=== PATIENT | female | born 1940 | race Caucasian/White ===

== ENCOUNTER 2018-12-22 14:38 | Emergency (ER) | payer MEDICARE ==
[2018-12-22 14:53] VITALS: BP 111/55
--- NOTE | 2018-12-22 15:12 | UC ---
Skin Complaint HPI - HPI Summary HPI Summary: abscess on left side of mid back is pain ful has been there and getting worse for 3 weeks--- no streaking or fever - History of Current Complaint Chief Complaint: UCSkin Time Seen by Provider: 12/22/18 15:05 Stated Complaint: SKIN COMPLAINT Hx Obtained From: Patient ?: No Onset/Duration: Gradual Onset, Lasting Weeks - 3 Timing: Constant Pain Intensity: 2 Pain Scale Used: 0-10 Numeric Location: Discrete Character: Redness, Raised, Painful Aggravating Factor(s): Nothing Alleviating Factor(s): Nothing Associated Signs & Symptoms: Positive: Tenderness - Allergy/Home Medications Allergies/Adverse Reactions: Allergies Allergy/AdvReac Type Severity Reaction Status Date / Time oxycodone Allergy Itching Verified 12/22/18 14:56 Calcium Channel Blocking AdvReac Severe seizure Verified 12/22/18 14:56 Agent Dilt lobster/shrimp Allergy Itching Uncoded 12/22/18 14:56 Home Medications: Home Medications Atenolol TAB* [Tenormin TAB* 25 MG] 25 mg PO DAILY 12/22/18 [History Confirmed 12/22/18] Cholecalciferol TAB* [Vitamin D TAB*] 500 unit PO DAILY 12/22/18 [History Confirmed 12/22/18] Cyanocobalamin TAB* [Vitamin B12 TAB*] 3,000 mcg PO DAILY 12/22/18 [History Confirmed 12/22/18] Iron 65 mg PO DAILY 12/22/18 [History Confirmed 12/22/18] Magnesium Oxide [Magnesium] 400 mg PO DAILY 12/22/18 [History Confirmed 12/22/18 ] Potassium Gluconate [Potassium] 500 mg PO DAILY 12/22/18 [History Confirmed ] Sertraline* [Zoloft*] 50 mg PO DAILY 12/22/18 [History Confirmed 12/22/18] Spironolactone TAB* [Aldactone TAB 25 MG*] 25 mg PO DAILY 12/22/18 [History Confirmed 12/22/18] Torsemide TAB* [Demadex 20 MG*] 10 mg PO DAILY 12/22/18 [History Confirmed 12/22] Zinc Acetate [Galzin] 25 mg PO DAILY 12/22/18 [History Confirmed 12/22/18] PMH/Surg Hx/FS Hx/Imm Hx Previously Healthy: No Cardiovascular History: Cardiac Disease, Hypertension, Atrial Fibrillation Psychological History: Depression - Surgical History Surgical History: Yes Surgery Procedure, Year, and Place: pacemaker. cardiac ablations. triple bypass & aortic valve replacement. tonsillectomy. appendectomy. right ankle - fusion - Family History Known Family History: Positive: None - Social History Occupation: Retired Lives: With Family Alcohol Use: Weekly Substance Use Type: None Smoking Status (MU): Former Smoker When Did the Patient Quit Smoking/Using Tobacco: 50 years ago Review of Systems All Other Systems Reviewed And Are Negative: Yes Constitutional: Positive: Negative Skin: Positive: Other - abscess left side of mid back about 1 inch diameter- Eyes: Positive: Negative ENT: Positive: Negative Respiratory: Positive: Negative Cardiovascular: Positive: Negative Gastrointestinal: Positive: Negative Genitourinary: Positive: Negative Motor: Positive: Negative Neurovascular: Positive: Negative Musculoskeletal: Positive: Negative Neurological: Positive: Negative Psychological: Positive: Negative Is Patient Immunocompromised?: No Physical Exam Triage Information Reviewed: Yes Appearance: Well-Appearing, No Pain Distress, Well-Nourished Vital Signs: Initial Vital Signs Temp 98.5 F 12/22/18 14:47 Pulse 59 12/22/18 14:47 Resp 16 12/22/18 14:47 BP 111/55 12/22/18 14:47 Pulse Ox 96 12/22/18 14:47 Vital Signs Reviewed: Yes Eye Exam: Normal Eyes: Positive: Conjunctiva Clear ENT Exam: Normal ENT: Positive: Normal ENT inspection, Hearing grossly normal. Negative: Trismus , Muffled voice, Hoarse voice Dental Exam: Normal Neck exam: Normal Neck: Positive: Supple, Nontender, No Lymphadenopathy Respiratory Exam: Normal Respiratory: Positive: Chest non-tender, No respiratory distress, No accessory muscle use Cardiovascular Exam: Normal Cardiovascular: Positive: RRR, Pulses Normal, Brisk Capillary Refill Musculoskeletal Exam: Normal Musculoskeletal: Positive: Strength Intact, ROM Intact, No Edema Neurological Exam: Normal Neurological: Positive: Alert, Muscle Tone Normal Psychological Exam: Normal Skin: Positive: Other - soft 1 inch diameterleft side of mid back no drainage Course/Dx - Course Course Of Treatment: patient given specific instructions to follow with pcp within the next 3 days to have INr and K followed--(patient reports her INR has been stable and gets labs checked 1 time a month) bactrim warm compresses-- - Diagnoses Provider Diagnosis: Abscess of back, except buttock, On warfarin therapy Discharge ED - Sign-Out/Discharge Documenting (check all that apply): Patient Departure All imaging exams completed and their final reports reviewed: No Studies - Discharge Plan Condition: Stable Disposition: HOME Prescriptions: Sulfamethox/Trimethoprim DS* [Bactrim DS 800/160 TAB*] 1 tab PO BID #14 tab Patient Education Materials: Abscess (ED), Warm Compress or Soak (ED) Referrals: Blanka Corral MD [Primary Care Provider] - 3 Days (evaluation of INR) - Billing Disposition and Condition Condition: STABLE Disposition: Home
== END 2018-12-22 15:24 | disposition home or self-care (01) ==
LOC: UCEAST 14:38
DX: L02.212 Cutaneous abscess of back [any part, except buttock and flank] (principal); I10 Essential (primary) hypertension; F32.9 Major depressive disorder, single episode, unspecified; Z88.8 Allergy status to other drugs, medicaments and biological substances; Z88.5 Allergy status to narcotic agent; Z91.013 Allergy to seafood; Z79.899 Other long term (current) drug therapy; Z87.891 Personal history of nicotine dependence; Z95.0 Presence of cardiac pacemaker; Z95.828 Presence of other vascular implants and grafts; Z79.01 Long term (current) use of anticoagulants
CPT/HCPCS: 99212; G0463

== ENCOUNTER 2022-01-31 00:08 | Inpatient (IN) ==
[2022-01-31 02:33] LABS: INR 1.57 (0.89-1.11)
[2022-01-31 02:35] LABS: ABS Lymphocytes 0.5 10^3/ul (1.0-4.8); ABS Monocytes 0.6 10^3/ul (0-0.8); ABS Neutrophils 4.2 10^3/ul (1.5-7.7); Eosinophil % 0.1 %; Hematocrit 37 % (35-47); Lymphocyte % 10.3 %; Mean Corpuscular HGB Conc 32 g/dL (31-36); Mean Corpuscular Hemoglobin 32 pg (27-31); Mean Corpuscular Volume 98 fL (80-97); Mean Platelet Volume 8.8 fL (7.4-10.4); Nucleated Red Blood Cells % 0.1; Platelet Count 130 10^3/uL (150-450); Red Blood Count 3.81 10^6 /uL (3.70-4.87); Red Cell Distribution Width 17 % (10-15); White Blood Count 5.3 10^3/uL (3.5-10.8)
[2022-01-31 03:19] LABS: Albumin 3.9 g/dL (3.2-5.2); Albumin/Globulin Ratio 1.3 (1-3); Calcium 9.1 mg/dL (8.6-10.3); Globulin 3.1 g/dL (2-4); Magnesium 2.2 mg/dL (1.9-2.7); Potassium 2.8 mmol/L (3.5-5.0); Total Bilirubin 0.7 mg/dL (0.2-1.0); eGFR CKD-EPI 74.4 (>60)
[2022-01-31] MEDS ORDERED: KCL 20 MEQ/100 ML IVPREMIX 20 MEQ/100 ML BAG IV ONE (03:23)
[2022-01-31] MEDS ORDERED: Iodixanol (CONTRAST) 320 MG/ML 100 ML SDV IV ONE (05:35)
[2022-01-31] MEDS ORDERED: LORazepam 2 mg VIAL 1 ml ONE (05:48)
[2022-01-31] MEDS ORDERED: LORazepam 2 mg VIAL 1 ml IV PUSH ONE (05:56)
[2022-01-31] MEDS ORDERED: Lorazepam PYXIS KEY PRN ×2 (05:56→06:45)
[2022-01-31] MEDS ORDERED: Furosemide 40 mg/4 ml IV VIAL IV SLOW PU ONE ×2 (06:01→12:00)
[2022-01-31 06:19] LABS: High Sensitivity Troponin 1 Hr 45 pg/mL (<15)
[2022-01-31] MEDS: KCL 20 MEQ/100 ML IVPREMIX 20 MEQ/100 ML BAG IV SCH ×2 (06:27→09:43)
[2022-01-31] MEDS ORDERED: levETIRAcetam 1000MG IVPREMIX 1,000 MG/100 ML BAG IVPB ONE (06:40)
[2022-01-31] MEDS ORDERED: LORazepam 2 mg VIAL 1 ml IV PUSH PRN (06:45)
[2022-01-31] MEDS: Cholecalciferol (VIT D3) 1,000 unit TAB PO SCH (17:03)
[2022-02-01 06:41] LABS: ABS Eosinophils 0.1 10^3/ul (0-0.6); ABS Lymphocytes 0.7 10^3/ul (1.0-4.8); ABS Monocytes 0.7 10^3/ul (0-0.8); ABS Neutrophils 3.5 10^3/ul (1.5-7.7); Eosinophil % 1.2 %; Hematocrit 38 % (35-47); Hemoglobin 12.1 g/dL (12.0-16.0); Lymphocyte % 14.4 %; Mean Corpuscular HGB Conc 32 g/dL (31-36); Mean Corpuscular Hemoglobin 31 pg (27-31); Mean Corpuscular Volume 98 fL (80-97); Mean Platelet Volume 8.7 fL (7.4-10.4); Platelet Count 126 10^3/uL (150-450); Red Blood Count 3.88 10^6 /uL (3.70-4.87); Red Cell Distribution Width 17 % (10-15)
[2022-02-01 07:42] LABS: Calcium 9.1 mg/dL (8.6-10.3)
[2022-02-01] MEDS: Cholecalciferol (VIT D3) 1,000 unit TAB PO SCH (07:54)
[2022-02-01 08:39] LABS: INR 1.63 (0.89-1.11)
[2022-02-01 09:08] LABS: eGFR CKD-EPI 79.2 (>60)
[2022-02-01 09:09] LABS: Potassium 2.7 mmol/L (3.5-5.0)
[2022-02-01] MEDS ORDERED: Potassium Chlor 20 meq TAB.ER PO ONE ×2 (10:15→21:00)
[2022-02-01] MEDS: KCL 20 MEQ/100 ML IVPREMIX 20 MEQ/100 ML BAG IV SCH ×2 (10:37→15:06)
[2022-02-01] MEDS ORDERED: Potassium Chlor 10 meq TAB PO ONE (14:37)
[2022-02-01 16:12] LABS: Calcium 9.5 mg/dL (8.6-10.3); Potassium 3.2 mmol/L (3.5-5.0); eGFR CKD-EPI 71.2 (>60)
[2022-02-01] MEDS ORDERED: Warfarin DAILY REMINDER **NOTE FOLLOW UP SCH (17:00)
[2022-02-02 05:58] LABS: INR 1.79 (0.89-1.11)
[2022-02-02 06:34] LABS: Calcium 9.7 mg/dL (8.6-10.3); Potassium 3.8 mmol/L (3.5-5.0); eGFR CKD-EPI 79.2 (>60)
[2022-02-02] MEDS: Cholecalciferol (VIT D3) 1,000 unit TAB PO SCH (10:29)
[2022-02-02 10:55] VITALS: BP 143/71
== END 2022-02-02 11:37 | disposition home or self-care (01) | DRG 292 ==
LOC: ED 00:08 → EDHOLD 06:16 → SUATTDRO 06:16 → EDHOLD 15:31 → MED 15:58
PROVIDERS: ADMIT Internal Medicine; ATTEND Internal Medicine

== ENCOUNTER 2022-09-22 02:35 | Inpatient (IN) ==
[2022-09-22] MEDS ORDERED: fentaNYL 100 mcg/2 ml 50 MCG/ML VIAL IV SLOW PU ONE (03:35)
[2022-09-22] MEDS ORDERED: Iodixanol (CONTRAST) 320 MG/ML 100 ML SDV IV ONE (05:37)
[2022-09-22 06:48] LABS: ABS Lymphocytes 0.3 10^3/uL (1.0-4.8); ABS Monocytes 0.6 10^3/uL (0.0-0.9); ABS Neutrophils 6.6 10^3/uL (1.5-7.6); ABS Nucleated RBC 0.01 10^3/ul; Eosinophil % 0.2 %; Hematocrit 41.8 % (35-45); Lymphocyte % 4.5 %; Mean Corpuscular Hemoglobin 30.5 pg (27-33); Mean Corpuscular Hgb Conc 33.4 g/dL (31-36); Mean Corpuscular Volume 91.2 fL (80-97); Mean Platelet Volume 8.7 fL (7.5-11.2); Nucleated Red Blood Cells % 0.1 /100 WBC (0.0-0.4); Platelet Count 119 10^3/uL (150-450); Red Blood Count 4.59 10^6/uL (3.63-4.92); Red Cell Distribution Width 13.2 % (12-17); White Blood Count 7.5 10^3/uL (3.8-11.8)
[2022-09-22 06:53] LABS: Activated Partial Thrombo Time 27.3 seconds (26.0-38.0); INR 1.43 (0.88-1.18)
[2022-09-22 07:06] LABS: Calcium 9.3 mg/dL (8.6-10.3); Creatinine, Serum 0.79 mg/dL (0.51-0.95); Potassium 3.9 mmol/L (3.5-5.0); eGFR CKD-EPI 75.6 (>60)
[2022-09-22] MEDS ORDERED: Ondansetron 4 mg VIAL 2 MG/ML 2 ml VIAL IV PRN (07:12)
[2022-09-22] MEDS: LEVETIRACETAM 750 MG PO SCH ×2 (08:47→22:44)
[2022-09-22] MEDS: Cholecalciferol (VIT D3) 1,000 unit TAB PO SCH (10:22)
[2022-09-22] MEDS: Morphine 2 MG/ML SYRINGE IV PRN (19:23)
[2022-09-23 06:25] LABS: ABS Eosinophils 0.2 10^3/uL (0.0-0.5); ABS Lymphocytes 0.6 10^3/uL (1.0-4.8); ABS Monocytes 0.7 10^3/uL (0.0-0.9); ABS Neutrophils 4.6 10^3/uL (1.5-7.6); ABS Nucleated RBC 0.01 10^3/ul; Eosinophil % 3.6 %; Hematocrit 37.5 % (35-45); Lymphocyte % 9.8 %; Mean Corpuscular Hemoglobin 31.3 pg (27-33); Mean Corpuscular Hgb Conc 34.6 g/dL (31-36); Mean Corpuscular Volume 90.6 fL (80-97); Mean Platelet Volume 8.8 fL (7.5-11.2); Nucleated Red Blood Cells % 0.1 /100 WBC (0.0-0.4); Platelet Count 105 10^3/uL (150-450); Red Blood Count 4.14 10^6/uL (3.63-4.92); Red Cell Distribution Width 13.2 % (12-17); White Blood Count 6.2 10^3/uL (3.8-11.8)
[2022-09-23 06:58] LABS: Calcium 8.9 mg/dL (8.6-10.3); Creatinine, Serum 0.71 mg/dL (0.51-0.95); Potassium 4.3 mmol/L (3.5-5.0); eGFR CKD-EPI 85.9 (>60)
[2022-09-23] MEDS: Cholecalciferol (VIT D3) 1,000 unit TAB PO SCH (08:22)
[2022-09-23] MEDS: LEVETIRACETAM 750 MG PO SCH ×2 (08:23→21:08)
[2022-09-23] MEDS: Morphine 2 MG/ML SYRINGE IV PRN (08:30)
[2022-09-23] MEDS ORDERED: LORazepam 2 mg VIAL 1 ml IV PUSH ONE (09:05)
[2022-09-23 23:16] VITALS: BP 130/69
== END 2022-09-23 23:26 | disposition short-term general hospital (02) | DRG 536 ==
LOC: ED 02:35 → EDHOLD 07:27 → AA 14:16 → EDHOLD 09-23 23:25
PROVIDERS: ADMIT Student in an Organized Health Care Education/Training Program; ATTEND Student in an Organized Health Care Education/Training Program

== ENCOUNTER 2023-08-17 07:32 | Inpatient (IN) ==
[2023-08-17 08:16] LABS: ABS Basophils 0.1 10^3/uL (0.0-0.1); ABS Eosinophils 0.1 10^3/uL (0.0-0.5); ABS Lymphocytes 0.7 10^3/uL (1.0-4.8); ABS Monocytes 0.6 10^3/uL (0.0-0.9); ABS Neutrophils 5.2 10^3/uL (1.5-7.6); ABS Nucleated RBC 0.01 10^3/ul; Eosinophil % 1.3 %; Hematocrit 36.1 % (35-45); Hemoglobin 11.7 g/dL (11.5-14.3); Lymphocyte % 10.8 %; Mean Corpuscular Hemoglobin 31.1 pg (27-33); Mean Corpuscular Hgb Conc 32.3 g/dL (31-36); Mean Corpuscular Volume 96.1 fL (80-97); Mean Platelet Volume 8.5 fL (7.5-11.2); Nucleated Red Blood Cells % 0.2 %/100WBC (0.0-0.8); Platelet Count 179 10^3/uL (150-450); Red Blood Count 3.75 10^6/uL (3.63-4.92); Red Cell Distribution Width 13.2 % (12-17); White Blood Count 6.7 10^3/uL (3.8-11.8)
[2023-08-17 08:18] LABS: INR 3.74 (0.83-1.13)
[2023-08-17 09:21] LABS: Albumin 3.8 g/dL (3.2-5.2); Calcium 9.1 mg/dL (8.6-10.3); Creatinine, Serum 0.77 mg/dL (0.51-0.95); Globulin 3.8 g/dL (2-4); Potassium 4.1 mmol/L (3.5-5.0); Total Bilirubin 0.9 mg/dL (0.2-1.0); Total Protein 7.6 g/dL (6.4-8.9); eGFR CKD-EPI 77.4 (>60)
[2023-08-17 09:27] LABS: High Sensitivity Troponin 1 Hr 16 pg/mL (<15)
[2023-08-17] MEDS: Furosemide 40 mg/4 ml IV VIAL IV SLOW PU ONE ×2 (11:19→17:52)
[2023-08-17 12:53] LABS: Magnesium 1.9 mg/dL (1.9-2.7)
[2023-08-17] MEDS ORDERED: Dextrose 50% Syringe 50 ml 25 GM/50 ML SYRINGE IV PUSH PRN (13:24)
[2023-08-17] MEDS ORDERED: Warfarin per PHARMACY **NOTE FOLLOW UP SCH (14:00)
[2023-08-17] MEDS: Albuterol/Ipratropium NEB.SOL (2.5/0.5 MG) 3 ML NEB.SOLN INH ONE (15:39)
[2023-08-17] MEDS ORDERED: Warfarin - No Order Today **NOTE FOLLOW UP ONE (17:00)
[2023-08-17] MEDS: Sulfur Hexaflouride MICROSPHR 25 MG VIAL IV ONE (17:46)
[2023-08-17] MEDS ORDERED: Albuterol/Ipratropium NEB.SOL (2.5/0.5 MG) 3 ML NEB.SOLN INH PRN (18:00)
[2023-08-18 06:55] LABS: INR 3.32 (0.83-1.13)
[2023-08-18 06:56] LABS: ABS Basophils 0.1 10^3/uL (0.0-0.1); ABS Eosinophils 0.2 10^3/uL (0.0-0.5); ABS Lymphocytes 0.9 10^3/uL (1.0-4.8); ABS Monocytes 0.7 10^3/uL (0.0-0.9); ABS Neutrophils 3.6 10^3/uL (1.5-7.6); Eosinophil % 3.3 %; Hematocrit 31.9 % (35-45); Hemoglobin 10.9 g/dL (11.5-14.3); Lymphocyte % 16.6 %; Mean Corpuscular Hemoglobin 31.6 pg (27-33); Mean Corpuscular Hgb Conc 34.1 g/dL (31-36); Mean Corpuscular Volume 92.7 fL (80-97); Mean Platelet Volume 8.4 fL (7.5-11.2); Platelet Count 181 10^3/uL (150-450); Red Blood Count 3.44 10^6/uL (3.63-4.92); Red Cell Distribution Width 12.8 % (12-17); White Blood Count 5.4 10^3/uL (3.8-11.8)
[2023-08-18 07:26] LABS: Calcium 8.6 mg/dL (8.6-10.3); Creatinine, Serum 0.81 mg/dL (0.51-0.95); Magnesium 1.9 mg/dL (1.9-2.7); Potassium 3.4 mmol/L (3.5-5.0); eGFR CKD-EPI 72.9 (>60)
[2023-08-18] MEDS: Potassium Chlor 20 meq TAB.ER PO ONE (10:30)
[2023-08-18] MEDS: Cholecalciferol (VIT D3) 1,000 unit TAB PO SCH (10:31)
[2023-08-18] MEDS: Magnesium Sulfate 2 gm BAG 2 GM/50 ML BAG IVPB ONE (11:55)
[2023-08-18] MEDS: Furosemide 40 mg/4 ml IV VIAL IV ONE (11:55)
[2023-08-18] MEDS: Warfarin DAILY REMINDER **NOTE FOLLOW UP SCH (17:20)
[2023-08-18] MEDS: Warfarin - No Order Today **NOTE FOLLOW UP ONE (17:21)
[2023-08-18] MEDS: Enoxaparin 80 MG/0.8 ML SYR SUBCUT SCH (21:46)
[2023-08-19 08:08] LABS: Hematocrit 34.5 % (35-45); Hemoglobin 11.8 g/dL (11.5-14.3); Mean Corpuscular Hemoglobin 31.7 pg (27-33); Mean Corpuscular Hgb Conc 34.1 g/dL (31-36); Mean Platelet Volume 8.3 fL (7.5-11.2); Platelet Count 201 10^3/uL (150-450); Red Blood Count 3.71 10^6/uL (3.63-4.92); Red Cell Distribution Width 12.8 % (12-17); White Blood Count 5.8 10^3/uL (3.8-11.8)
[2023-08-19 08:25] LABS: Calcium 8.5 mg/dL (8.6-10.3); Creatinine, Serum 0.77 mg/dL (0.51-0.95); Magnesium 2.2 mg/dL (1.9-2.7); Potassium 3.8 mmol/L (3.5-5.0); eGFR CKD-EPI 77.4 (>60)
[2023-08-19] MEDS: Furosemide 40 mg/4 ml IV VIAL IV ONE (08:27)
[2023-08-19 08:37] LABS: INR 2.23 (0.83-1.13)
[2023-08-19] MEDS: Iodixanol (CONTRAST) 320 MG/ML 100 ML SDV IV ONE (11:42)
[2023-08-20 06:56] LABS: INR 1.66 (0.83-1.13)
[2023-08-21 06:26] LABS: Hematocrit 37.1 % (35-45); Hemoglobin 12.7 g/dL (11.5-14.3); Mean Corpuscular Hemoglobin 31.6 pg (27-33); Mean Corpuscular Hgb Conc 34.1 g/dL (31-36); Mean Corpuscular Volume 92.5 fL (80-97); Mean Platelet Volume 8.2 fL (7.5-11.2); Platelet Count 199 10^3/uL (150-450); Red Blood Count 4.01 10^6/uL (3.63-4.92); Red Cell Distribution Width 12.9 % (12-17)
[2023-08-21 06:28] LABS: INR 1.51 (0.83-1.13)
[2023-08-21 07:14] LABS: Calcium 8.9 mg/dL (8.6-10.3); Creatinine, Serum 0.77 mg/dL (0.51-0.95); Magnesium 2.3 mg/dL (1.9-2.7); Potassium 4.2 mmol/L (3.5-5.0); eGFR CKD-EPI 77.4 (>60)
[2023-08-21] MEDS ORDERED: Aminophylline 25 MG/ML VIAL ONE (12:02)
[2023-08-21] MEDS ORDERED: Regadenoson 0.4 MG/5 ML SYRINGE ONE (12:03)
[2023-08-21 13:46] VITALS: BP 149/71
== END 2023-08-21 17:00 | disposition home or self-care (01) | DRG 291 ==
LOC: ED 07:32 → EDHOLD 07:32 → SUATTDRO 11:08 → MED 15:45
PROVIDERS: ADMIT Internal Medicine; ATTEND Hospitalist

== ENCOUNTER 2023-12-12 11:54 | Inpatient (IN) ==
[2023-12-12 12:20] LABS: ABS Lymphocytes 0.8 10^3/uL (1.0-4.8); ABS Monocytes 0.4 10^3/uL (0.0-0.9); ABS Neutrophils 5.5 10^3/uL (1.5-7.6); Eosinophil % 0.7 %; Hematocrit 39.9 % (35-45); Hemoglobin 13.1 g/dL (11.5-14.3); Lymphocyte % 11.5 %; Mean Corpuscular Hgb Conc 32.8 g/dL (31-36); Mean Corpuscular Volume 91.4 fL (80-97); Platelet Count 172 10^3/uL (150-450); Red Blood Count 4.37 10^6/uL (3.63-4.92); White Blood Count 6.8 10^3/uL (3.8-11.8)
[2023-12-12 12:31] LABS: Activated Partial Thrombo Time 22.3 seconds (26.0-38.0); INR 1.31 (0.85-1.14)
[2023-12-12 12:44] LABS: High Sens Troponin Baseline 13 pg/mL (<15)
[2023-12-12] MEDS: levETIRAcetam 1000MG IVPREMIX 1,000 MG/100 ML BAG IVPB ONE ×2 (12:56)
[2023-12-12 12:58] LABS: ALT 19 U/L (7-52); Albumin 3.9 g/dL (3.2-5.2); Albumin/Globulin Ratio 1.1 (1-3); Alkaline Phosphatase 78 U/L (35-149); Blood Urea Nitrogen 12 mg/dL (6-24); CO2 Carbon Dioxide 18 mmol/L (22-32); Calcium 8.9 mg/dL (8.6-10.3); Chloride 102 mmol/L (101-111); Cholesterol 356 mg/dL; Creatinine, Serum 0.82 mg/dL (0.51-0.95); Globulin 3.5 g/dL (2-4); Glucose 213 mg/dL (70-100); LDL Cholesterol 250 mg/dL; Sodium 135 mmol/L (135-145); Total Bilirubin 0.6 mg/dL (0.2-1.0); Total Protein 7.4 g/dL (6.4-8.9); Triglycerides 313 mg/dL; eGFR CKD-EPI 71.4 (>60)
[2023-12-12 13:13] LABS: Anion Gap 15 mmol/L (2-16)
[2023-12-12 13:39] LABS: High Sensitivity Troponin 1 Hr 20 pg/mL (<15)
[2023-12-12 15:40] LABS: High Sensitivity Troponin 3 Hr 50 pg/mL (<15)
[2023-12-12 16:00] LABS: Potassium, Whole Blood 3.8 mmol/L (3.4-4.5)
[2023-12-12 16:19] LABS: TSH Ultra Thyroid Stim Horm 6.41 mcIU/mL (0.34-5.60)
[2023-12-12] MEDS ORDERED: Labetalol IV 5 MG/ML 20 ml VIAL IV PUSH PRN (18:08)
[2023-12-12 19:39] LABS: Urine Appearance Clear; Urine Bacteria Absent /HPF (Absent); Urine Bilirubin Negative (Negative); Urine Blood Trace (Negative); Urine Color Yellow; Urine Glucose 1+ (>=70 mg/dL) (Negative); Urine Ketones Negative (Negative); Urine Nitrite Negative (Negative); Urine Protein Trace (Negative); Urine Red Blood Cell 3+(>10/hpf) /HPF (0-Trace); Urine Specific Gravity >1.050 (1.002-1.030); Urine Squamous Epithelial Cell Present /HPF (Absent); Urine Urobilinogen Negative (Negative); Urine White Blood Cell 2+(11-20/hpf) /HPF (0-Trace); Urine pH 6.5 (5.0-8.0)
[2023-12-12 20:13] LABS: Direct Bilirubin Redraw 0.1 mg/dL (0.1-0.5); Magnesium 2.3 mg/dL (1.9-2.7)
[2023-12-12] MEDS: LEVETIRACETAM 750 MG PO SCH (22:32)
[2023-12-13] MEDS: levETIRAcetam IV 250 MG in NS 0.9% 100 ml BAG 100 ML IVPB ONE (00:25)
[2023-12-13 08:55] LABS: ABS Basophils 0.1 10^3/uL (0.0-0.1); ABS Lymphocytes 0.7 10^3/uL (1.0-4.8); ABS Monocytes 0.4 10^3/uL (0.0-0.9); ABS Neutrophils 4.6 10^3/uL (1.5-7.6); ABS Nucleated RBC 0.01 10^3/ul; Eosinophil % 0.5 %; Hematocrit 38.9 % (35-45); Hemoglobin 12.9 g/dL (11.5-14.3); Lymphocyte % 12.3 %; Mean Corpuscular Hemoglobin 29.5 pg (27-33); Mean Corpuscular Hgb Conc 33.1 g/dL (31-36); Mean Corpuscular Volume 89.3 fL (80-97); Mean Platelet Volume 8.3 fL (7.5-11.2); Nucleated Red Blood Cells % 0.1 %/100WBC (0.0-0.8); Platelet Count 158 10^3/uL (150-450); Red Blood Count 4.35 10^6/uL (3.63-4.92); Red Cell Distribution Width 13.4 % (12-17); White Blood Count 5.9 10^3/uL (3.8-11.8)
[2023-12-13] MEDS ORDERED: levETIRAcetam 1000MG IVPREMIX 1,000 MG/100 ML BAG IVPB SCH (09:00)
[2023-12-13 09:34] LABS: Potassium 3.6 mmol/L (3.5-5.0)
[2023-12-13 09:35] LABS: Calcium 8.9 mg/dL (8.6-10.3); Creatinine, Serum 0.71 mg/dL (0.51-0.95); Magnesium 2.2 mg/dL (1.9-2.7); eGFR CKD-EPI 84.8 (>60)
[2023-12-13] MEDS: levETIRAcetam 1000MG IVPREMIX 1,000 MG/100 ML BAG IVPB SCH (09:36)
[2023-12-13] MEDS: Sulfur Hexaflouride MICROSPHR 25 MG VIAL IV PRN (09:57)
[2023-12-13] MEDS ORDERED: Lorazepam PYXIS KEY PRN ×2 (10:21→10:25)
[2023-12-13] MEDS ORDERED: LORazepam 2 mg VIAL 1 ml IV PUSH PRN (10:25)
[2023-12-13] MEDS: LORazepam 2 mg VIAL 1 ml IV PUSH ONE (10:26)
[2023-12-13] MEDS: LORazepam 2 mg VIAL 1 ml ONE (10:27)
[2023-12-13 11:01] LABS: C Reactive Protein 6.87 mg/L (<8.01)
[2023-12-13] MEDS: Cholecalciferol (VIT D3) 1,000 unit TAB PO SCH (11:05)
[2023-12-13 17:32] LABS: High Sensitivity Troponin 1 Hr 39 pg/mL (<15)
[2023-12-14 05:52] LABS: ABS Eosinophils 0.1 10^3/uL (0.0-0.5); ABS Lymphocytes 0.8 10^3/uL (1.0-4.8); ABS Monocytes 0.8 10^3/uL (0.0-0.9); ABS Neutrophils 5.5 10^3/uL (1.5-7.6); Eosinophil % 0.9 %; Hematocrit 36.6 % (35-45); Hemoglobin 12.1 g/dL (11.5-14.3); Lymphocyte % 11.2 %; Mean Corpuscular Hemoglobin 29.8 pg (27-33); Mean Corpuscular Hgb Conc 33.2 g/dL (31-36); Mean Corpuscular Volume 89.8 fL (80-97); Mean Platelet Volume 8.7 fL (7.5-11.2); Platelet Count 148 10^3/uL (150-450); Red Blood Count 4.07 10^6/uL (3.63-4.92); Red Cell Distribution Width 13.5 % (12-17); White Blood Count 7.3 10^3/uL (3.8-11.8)
[2023-12-14 06:08] LABS: Creatinine, Serum 0.64 mg/dL (0.51-0.95); Potassium 3.5 mmol/L (3.5-5.0); eGFR CKD-EPI 88.2 (>60)
[2023-12-14] MEDS: Iodixanol 320 (CONTRAST) 100 ML SDV IV ONE (08:25)
[2023-12-14] MEDS: cefTRIAXone 1 gm/50 mL D5W 1 GM/50 ML BAG IV SCH (14:54)
[2023-12-15 06:43] LABS: ABS Eosinophils 0.1 10^3/uL (0.0-0.5); ABS Monocytes 0.7 10^3/uL (0.0-0.9); ABS Neutrophils 4.4 10^3/uL (1.5-7.6); Eosinophil % 2.1 %; Hematocrit 36.2 % (35-45); Hemoglobin 12.1 g/dL (11.5-14.3); Lymphocyte % 15.6 %; Mean Corpuscular Hgb Conc 33.4 g/dL (31-36); Mean Corpuscular Volume 89.9 fL (80-97); Mean Platelet Volume 8.7 fL (7.5-11.2); Platelet Count 142 10^3/uL (150-450); Red Blood Count 4.03 10^6/uL (3.63-4.92); Red Cell Distribution Width 13.8 % (12-17); White Blood Count 6.3 10^3/uL (3.8-11.8)
[2023-12-15 07:49] LABS: Calcium 9.1 mg/dL (8.6-10.3); Creatinine, Serum 0.66 mg/dL (0.51-0.95); Magnesium 2.1 mg/dL (1.9-2.7); Potassium 3.8 mmol/L (3.5-5.0); eGFR CKD-EPI 87.5 (>60)
[2023-12-15 13:44] VITALS: BP 139/60
== END 2023-12-15 15:08 | disposition home or self-care (01) | DRG 101 ==
LOC: ED 11:54 → SUATTDRO 16:28 → EDHOLD 16:28 → MEDTELE 12-13 03:59
PROVIDERS: ADMIT Internal Medicine; ATTEND Internal Medicine